=== PATIENT | female | born 1935 ===

== ENCOUNTER 2017-04-22 02:47 | Inpatient (IN) | payer MEDICARE, MEDICAID ==
--- NOTE | 2017-04-22 03:17 | C.PDOC ---
History Of Present Illness Patient is an 81 y/o female who presents to the ED with complaints of fever, chills, generalized weakness, and body aches. Patient notes dizziness, but admits to chronic vertigo at baseline. Patient reports to have fell and almost hit her head, but kept herself up from falling completely. Denies any LOC and admits to remembering the entire event. No other physical complaints at this time. Time Seen by Provider: 04/22/17 03:15 Chief Complaint (Nursing): Dizziness/Lightheaded History Per: Patient History/Exam Limitations: no limitations Severity: Mild Pain Scale Rating Of: 3 Reports Recently: Treated By A Physician Recent travel outside of the [place]: No Past Medical History Reviewed: Historical Data, Nursing Documentation, Vital Signs Vital Signs: Last Vital Signs Temp 99 F 04/22/17 05:35 Pulse 60 04/22/17 05:35 Resp 20 04/22/17 05:35 BP 127/55 L 04/22/17 05:35 Pulse Ox 94 L 04/22/17 06:07 - Medical History PMH: Arthritis, Depression, HTN, Hypercholesterolemia Denies: Diabetes, Hepatitis, HIV, Chronic Kidney Disease, Seizures, Sexually Transmitted Disease Surgical History: Cholecystectomy Denies: Pacemaker - [facility] CORONAR ARTERIOGR-2 CATH (08/24/11) INDIVID PSYCHOTHERAP NEC (09/17/12) LEFT HEART CARDIAC CATH (08/24/11) LT HEART ANGIOCARDIOGRAM (08/24/11) OTHER GROUP THERAPY (09/17/12) PHYSICAL THERAPY NEC (07/02/13) Family History: States: No Known Family Hx - Social History Hx Tobacco Use: No Hx Alcohol Use: No Hx Substance Use: No - Immunization History Hx Tetanus Toxoid Vaccination: Yes Hx Influenza Vaccination: Yes Hx Pneumococcal Vaccination: Yes Review Of Systems Constitutional: Positive for: Fever, Chills, Weakness (generalized), Malaise Neurological: Positive for: Dizziness (secondary to chronic vertigo), Other ( negative LOC) Physical Exam - Physical Exam Appears: Well, Non-toxic, No Acute Distress Skin: Warm, Dry Head: Normacephalic, Tenderness (small area of tenderness on left temportal/ parietal area) Eye(s): bilateral: Normal Inspection Oral Mucosa: Moist Chest: Symmetrical Cardiovascular: Rhythm Regular, No Murmur Respiratory: Normal Breath Sounds, No Rales, No Rhonchi, No Wheezing Gastrointestinal/Abdominal: Soft, No Tenderness Neurological/Psych: Oriented x3, Normal Speech, Normal Cognition ED Course And Treatment - Laboratory Results Result Diagrams: 04/22/17 03:29 18 03:29 ECG: Interpreted By Me, Viewed By Me ECG Rhythm: Sinus Rhythm (81), Nonspecific Changes O2 Sat by Pulse Oximetry: 94 Pulse Ox Interpretation: Normal - Radiology CXR: Interpreted by Me, Viewed By Me CXR Interpretation: No: Infiltrates, Fracture, Pnemothorax Progress Note: Blood work, Head CT, CXR, and UA ordered. Tylenol, Tamiflu, and IV fluids administered. Disposition Discussed With .: Charles Clements Comment: accepted the pt on his service and took over the care at 6:10 AM Doctor Will See Patient In The: Hospital Counseled Patient/Family Regarding: Studies Performed, Diagnosis - Disposition Disposition: HOSPITALIZED Disposition Time: 06:11 Condition: FAIR Forms: [facility] (Salvadorean) - POA Present On Arrival: Poor Glycemic Control - Clinical Impression Clinical Impression: Dizziness, Near syncope, Fever - Scribe Statement The provider has reviewed the documentation as recorded by the Scribe Rica Gupta All medical record entries made by the Scribe were at my direction and personally dictated by me. I have reviewed the chart and agree that the record accurately reflects my personal performance of the history, physical exam, medical decision making, and the department course for this patient. I have also personally directed, reviewed, and agree with the discharge instructions and disposition. Decision To Admit - Pt Status Changed To: Hospital Disposition Of: Inpatient - Admit Certification Admit to Inpatient:: After my assessment, the patient will require hospitalization for at least two midnights. This is because of the severity of symptoms shown, intensity of services needed, and/or the medical risk in this patient being treated as an outpatient. - InPatient: Physician Admission Certification: I certify that this patient requires 2 or more midnights of care for the following reason:: After my assessment, the patient will require hospitalization for at least two midnights. This is because of the severity of symptoms shown, intensity of services needed, and/or the medical risk in this patient being treated as an outpatient. - . Bed Request Type: Telemetry Admitting Physician: Charles Clements Patient Diagnosis: Dizziness, Near syncope, Fever
[2017-04-22 03:34] LABS: BASO % 0.3 % (0.0-2.0); EOS # 0.1 K/uL (0.0-0.7); EOS % 1.2 % (0.0-4.0); HEMOGLOBIN 12.6 g/dL (11.0-16.0); LYMPH # 0.4 K/uL (1.0-4.3); LYMPH % 5.6 % (20.0-40.0); MEAN CELL VOLUME 85.2 fL (81.0-99.0); MEAN PLATELET VOLUME 8.1 fL (7.2-11.7); MONO # 0.3 K/uL (0.0-0.8); MONO % 4.7 % (0.0-10.0); NEUT % 88.2 % (50.0-75.0); PLATELET COUNT 212 K/uL (130-400); RBC 4.34 Mil/uL (3.80-5.20); RED CELL DISTRIBUTION WIDTH 13.8 % (11.5-14.5); WHITE BLOOD COUNT 6.8 K/uL (4.8-10.8)
[2017-04-22 03:42] LABS: INR 1.1; PROTHROMBIN TIME 11.8 SECONDS (9.7-12.2)
[2017-04-22 03:44] LABS: ALB/GLOB RATIO 1.3 (1.0-2.1); ALT/SGPT 53 U/L (9-52); AST/SGOT 45 U/L (14-36); BLOOD UREA NITROGEN 12 mg/dL (7-17); CALCIUM 9.4 mg/dl (8.6-10.4); GFR AFRICAN-AMERICAN > 60; GFR NON-AFRICAN AMERICAN > 60; MAGNESIUM 1.9 mg/dL (1.6-2.3)
[2017-04-22] MEDS ORDERED: Sodium Chloride 0.9% 1,000 ML ONE (03:52)
[2017-04-22] MEDS: Sodium Chloride 0.9% 1,000 ML IV SCH ×2 (03:57→18:03)
[2017-04-22 04:07] LABS: VENOUS BLOOD GAS BASE EXCESS -1.6 mmol/L (0.0-2.0); VENOUS BLOOD GAS PCO2 31 mmHg (40-60); VENOUS BLOOD GAS PO2 40 mm/Hg (30-55); VENOUS BLOOD PH 7.45 (7.32-7.43)
[2017-04-22 04:14] LABS: URINE BACTERIA RARE (<OCC); URINE BILIRUBIN NEGATIVE (NEGATIVE); URINE BLOOD NEGATIVE (NEGATIVE); URINE CLARITY Clear (Clear); URINE COLOR Straw (YELLOW); URINE GLUCOSE (UA) NORMAL (Normal); URINE LEUKOCYTE ESTERASE NEG Leu/uL (Negative); URINE NITRATE NEGATIVE (NEGATIVE); URINE PROTEIN NEGATIVE (NEGATIVE); URINE UROBILINOGEN NORMAL mg/dL (0.2-1.0)
[2017-04-22 04:17] LABS: EOSINOPHIL 2 % (0-4); LYMPHOCYTE 3 % (20-40); MONOCYTE 3 % (0-10); NEUTROPHIL 92 % (50-75); PLATELET ESTIMATE NORMAL (NORMAL); TOTAL CELLS COUNTED 100
--- NOTE | 2017-04-22 05:23 | CT ---
EXAM: CT Head Without Intravenous Contrast EXAM DATE/TIME: 04/22/2017 3:22 AM CLINICAL HISTORY: 81 years old, female; Pain; Headache; Patient HX: 11-3-17 images sent; Additional info: R/O bleed TECHNIQUE: Axial computed tomography images of the head/brain without intravenous contrast. All CT scans at this facility use one or more dose reduction techniques, viz.: automated exposure control; ma/kV adjustment per patient size (including targeted exams where dose is matched to indication; i.e. head); or iterative reconstruction technique. COMPARISON: No relevant prior studies available. FINDINGS: BRAIN: Areas of low density in the periventricular white matter bilaterally, most likely representing mild chronic small vessel ischemic changes. No significant acute abnormality identified. No acute hemorrhage seen within the brain. No acute extra-axial fluid collections visualized. No evidence of significant mass effect within the brain. VENTRICLES: No evidence of significant hydrocephalus. BONES/JOINTS: No acute fractures or other acute bony abnormality noted. SOFT TISSUES: Tiny, round calcifications in the deep right facial soft tissues, which appear associated with a small 1.5 cm low density, lobulated soft tissue mass with well-defined margins. Findings are suspicious for a venous malformation, with the calcifications representing phleboliths. SINUSES: Visualized paranasal sinuses appear clear. MASTOID AIR CELLS: Mastoid air cells appear clear. IMPRESSION: - No acute findings seen within the brain. 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 This finding could be further evaluated with nonemergent MRI of the face/neck. - See above for remaining findings.
[2017-04-22] MEDS ORDERED: Azithromycin 500mg/250ML NS 500 MG/250 ML BAG IVPB SCH (06:15)
--- NOTE | 2017-04-22 09:32 | RAD ---
Chest x-ray single frontal view History: Shortness of breath. Comparison: 12/30/2011 Findings: Mild to moderate venous congestion. Patchy increased markings at the left lung base. Tortuous ectatic aorta. Right hilar prominence. Calcification at the aortic knob. Mild cardiomegaly. Degenerative changes in the spine and shoulders. Surgical clips in the right upper abdomen. Impression: Mild to moderate venous congestion. Patchy increased markings at the left lung base. Tortuous ectatic aorta. Right hilar prominence. Calcification at the aortic knob. Mild cardiomegaly.
[2017-04-22] MEDS ORDERED: Azithromycin 500 MG in Sodium Chloride 0.9% 250 ML IVPB SCH (14:15)
[2017-04-22] MEDS ORDERED: Azithromycin 500 MG in Sodium Chloride 0.9% 250 ML IVPB ONE (14:15)
[2017-04-22] MEDS ORDERED: Potassium Chloride 20 mEq ER Tab PO ONE (20:30)
[2017-04-23] MEDS ORDERED: Potassium Chloride 20 mEq ER Tab PO ONE (10:00)
[2017-04-23] MEDS: Azithromycin 500 MG in Sodium Chloride 0.9% 250 ML IVPB SCH (10:01)
--- NOTE | 2017-04-23 14:24 | CP.PCM.CON ---
History of Present Illness - History of Present Illness History of Present Illness: Patient is an 81 y/o female who presents to the ED with complaints of fever, chills, generalized weakness, and body aches. Patient notes dizziness, but admits to chronic vertigo at baseline. Patient reports to have fell and almost hit her head, but kept herself up from falling completely. Denies any LOC and admits to remembering the entire event. No other physical complaints at this time. admitted with severe flu like symptoms tested neg for Influenza IV rx for URI in progress - Medical History PMH: Arthritis, Depression, HTN, Hypercholesterolemia Denies: Diabetes, Hepatitis, HIV, Chronic Kidney Disease, Seizures, Sexually Transmitted Disease Review of Systems - Review of Systems All systems: reviewed and no additional remarkable complaints except - Constitutional Constitutional: As Per HPI - EENT Eyes: absent: As Per HPI, Blind Spots, Blurred Vision, Change in Vision, Decreased Night Vision, Diplopia, Discharge, Dry Eye, Exophthalmos, Floaters, Irritation, Itchy Eyes, Loss of Peripheral Vision, Pain, Photophobia, Requires Corrective Lenses, Sees Flashes, Spots in Vision, Tunnel Vision, Other Visual Disturbances, Loss of Vision, Other Ears: absent: As Per HPI, Decreased Hearing, Ear Discharge, Ear Pain, Tinnitus, Abnormal Hearing, Disequilibrium, Dizziness, Other Nose/Mouth/Throat: absent: As Per HPI, Epistaxis, Nasal Congestion, Nasal Discharge, Nasal Obstruction, Nasal Trauma, Nose Pain, Post Nasal Drip, Sinus Pain, Sinus Pressure, Bleeding Gums, Change in Voice, Dental Pain, Dry Mouth, Dysphagia, Halitosis, Hoarsness, Lip Swelling, Mouth Lesions, Mouth Pain, Odynophagia, Sore Throat, Throat Swelling, Tongue Swelling, Facial Pain, Neck Pain, Neck Mass, Other - Breasts Breasts: absent: As Per HPI, Change in Shape, Mass, Pain, Nipple Discharge, Nipple Inversion, Skin Changes, Swelling, Other - Cardiovascular Cardiovascular: As Per HPI - Respiratory Respiratory: As Per HPI, Cough - Gastrointestinal Gastrointestinal: absent: As Per HPI, Abdominal Pain, Belching, Bloating, Change in Bowel Habits, Change in Stool Character, Coffee Ground Emesis, Constipation, Cramping, Diarrhea, Dyspepsia, Dysphagia, Early Satiety, Excessive Flatus, Fecal Incontinence, Heartburn, Hematemesis, Hematochezia, Loose Stools, Melena, Nausea, Odynophagia, Temesmus, Vomiting, Other - Genitourinary Genitourinary: absent: As Per HPI, Change in Urinary Stream, Difficulty Urinating, Dysuria, Flank Pain, Hematuria, Pyuria, Nocturia, Urinary Incontinence, Urinary Frequency, Urinary Hesitance, Urinary Urgency, Voiding Freq/Small Amts, Freq UTI, Hx Renal/Bladder Calculi, Hx /Renal Surgery, Bladder Distension, Other - Reproductive: Female Reproductive:Female: absent: As Per HPI, Amenorrhea, Amenorrhea/ Control, Currently Menstual, Cycle <21 Days, Cycle >35 Days, Cycle Variable, Menses 1-7 Days, Menses >/= 8 Days, Menses Variable, Cycle > 4 Weeks Between, No Menses for 6 Months, Heavy Menses, Light Menses, Normal Menses, Spotting Between Cycles , S/P Hysterectomy, Menopausal, Post Menopausal, Premenarche, Abnormal Vaginal Bleeding, Dysmenorrhea, Dyspareunia, Genital Lesions, Genital Pruritis, Pelvic Pain, Prolapse Symptoms, Sexual Dysfunction, Vaginal Discharge, Vaginal Dryness , Vaginal Odor, Vaginal Pruritis, Other - Menstruation Menstruation: absent: As Per HPI, Amenorrhea, Amenorrhea/ Control, Currently Menstual, Cycle <21 Days, Cycle >35 Days, Cycle Variable, Menses 1-7 Days, Menses >/= 8 Days, Menses Variable, Cycle > 4 Weeks Between, No Menses for 6 Months, Heavy Menses, Light Menses, Normal Menses, Spotting Between Cycles , S/P Hysterectomy, Menopausal, Post Menopausal, Premenarche, Abnormal Vaginal Bleeding, Dysmenorrhea, Other - Musculoskeletal Musculoskeletal: As Per HPI - Integumentary Integumentary: absent: As Per HPI, Acne, Alopecia, Bleeding Lesions, Change in Hair, Change in Nails, Change in Pigmentation, Changing Lesions, Dry Skin, Erythema, Furuncle, Hirsutism, Lesions, New Lesions, Non-Healing Lesions, Photosensitivity, Pruritus, Rash, Skin Pain, Skin Ulcer, Sores, Striae, Swelling , Unusual Bruising, Wounds, Jaundice, Other - Neurological Neurological: As Per HPI - Psychiatric Psychiatric: absent: As Per HPI, Abnormal Sleep Pattern, Anhedonia, Anxiety, Auditory Hallucinations, Behavioral Changes, Change in Appetite, Change in Libido, Confusion, Depression, Difficulty Concentrating, Hallucinations, Homicidal Ideation, Hopelessness, Irritability, Memory Loss, Mood Swings, Panic Attacks, Paranoia, Suicidal Ideation, Visual Hallucinations, Tactile Hallucinations, Other - Endocrine Endocrine: absent: As Per HPI, Change in Body Appearance, Change in Libido, Cold Intolorance, Deepening of Voice, Excessive Sweating, Fatigue, Flushing, Heat Intolorance, Increase in Ring/Shoe/Hat Size, Palpitations, Polydipsia, Polyphagia, Polyuria, Other - Hematologic/Lymphatic Hematologic: absent: As Per HPI, Easy Bleeding, Easy Bruising, Lymphadenopathy, Other Past Patient History - Infectious Disease Hx of Infectious Diseases: None - Past Medical History & Family History Past Medical History?: Yes - Past Social History Smoking Status: Never Smoked - CARDIAC Hx Cardiac Disorders: Yes Hx Hypercholesterolemia: Yes Hx Hypertension: Yes Hx Pacemaker: No - PULMONARY Hx Respiratory Disorders: No Hx Tuberculosis: No - NEUROLOGICAL Hx Neurological Disorder: No Hx Seizures: No - HEENT Hx HEENT Problems: No - RENAL Hx Chronic Kidney Disease: No - ENDOCRINE/METABOLIC Hx Endocrine Disorders: No - HEMATOLOGICAL/ONCOLOGICAL Hx Blood Disorders: No Hx Human Immunodeficiency Virus (HIV): No - INTEGUMENTARY Hx Dermatological Problems: No - MUSCULOSKELETAL/RHEUMATOLOGICAL Hx Musculoskeletal Disorders: Yes Hx Arthritis: Yes Hx Falls: Yes - GASTROINTESTINAL Hx Gastrointestinal Disorders: Yes Hx Gastroesophageal Reflux: Yes - GENITOURINARY/GYNECOLOGICAL Hx Genitourinary Disorders: No Hx Sexually Transmitted Disorders: No - PSYCHIATRIC Hx Psychophysiologic Disorder: Yes Hx Depression: Yes Hx Substance Use: No - SURGICAL HISTORY Hx Surgeries: Yes Hx Cholecystectomy: Yes Hx Orthopedic Surgery: Yes (left TKR) - ANESTHESIA Hx Anesthesia: Yes Hx Anesthesia Reactions: No Hx Malignant Hyperthermia: No Meds Allergies/Adverse Reactions: Allergies Allergy/AdvReac Type Severity Reaction Status Date / Time Sulfa (Sulfonamide Allergy RASH Verified 04/22/17 03:10 Antibiotics) - Medications Medications: Current Medications Sodium Chloride (Sodium Chloride 0.9%) 1,000 mls @ 100 mls/hr IV .Q10H [facility] Last Admin: 04/22/17 18:03 Dose: 100 mls/hr Azithromycin 500 mg/ Sodium (Chloride) 250 mls @ 250 mls/hr IVPB DAILY [facility] Last Admin: 04/23/17 10:01 Dose: 250 mls/hr Oseltamivir Phosphate (Tamiflu Cap) 75 mg PO BID [facility] Stop: 04/27/17 19:20 Last Admin: 04/23/17 10:00 Dose: 75 mg Physical Exam - Constitutional Appears: Non-toxic, Cachectic, Chronically Ill - Head Exam Head Exam: NORMOCEPHALIC - Eye Exam Eye Exam: PERRL. absent: Scleral icterus - ENT Exam ENT Exam: Mucous Membranes Dry, Normal External Ear Exam - Neck Exam Neck exam: Negative for: Lymphadenopathy - Respiratory Exam Respiratory Exam: Decreased Breath Sounds, Clear to Auscultation Bilateral - Cardiovascular Exam Cardiovascular Exam: REGULAR RHYTHM, +S1, +S2 - GI/Abdominal Exam GI & Abdominal Exam: Diminished Bowel Sounds, Soft. absent: Rebound, Rigid, Tenderness - Rectal Exam Rectal Exam: Deferred - Exam Exam: NORMAL INSPECTION - Extremities Exam Extremities exam: Positive for: pedal pulses present. Negative for: calf tenderness, pedal edema, tenderness - Back Exam Back exam: absent: CVA tenderness (L), CVA tenderness (R) - Neurological Exam Neurological exam: Alert, CN II-XII Intact, Oriented x3, Reflexes Normal - Psychiatric Exam Psychiatric exam: Depressed - Skin Skin Exam: Dry, Intact Results - Vital Signs Recent Vital Signs: Last Vital Signs Temp 98.2 F 04/22/17 23:10 Pulse 58 L 04/22/17 23:10 Resp 20 04/22/17 23:10 BP 123/58 L 04/22/17 23:10 Pulse Ox 94 L 04/22/17 23:10 - Labs Result Diagrams: 04/22/17 03:29 04/22/17 03:29 Assessment & Plan (1) Dizziness Status: Acute (2) Fever Status: Acute (3) Near syncope Status: Acute - Assessment and Plan (Free Text) Assessment: flu like symptoms deconditioning dehydration s/p fall URI cont rx HI eval
[2017-04-23] MEDS: Sodium Chloride 0.9% 1,000 ML IV SCH ×2 (18:26→19:30)
--- NOTE | 2017-04-24 09:38 | CP.PCM.PN ---
Subjective - Date & Time of Evaluation Date of Evaluation: 04/24/17 Time of Evaluation: 07:50 - Subjective Subjective: PGY2 Medicine Note - Dr. Clements Patient is an 81 y/o female who presents to the ED with complaints of fever, chills, generalized weakness, and body aches. Patient notes dizziness, but admits to chronic vertigo at baseline. Patient reports to have fell and almost hit her head, but kept herself up from falling completely. Denies any LOC and admits to remembering the entire event. No other physical complaints at this time. Patient seen and examined this am. Reports continued body aches and chills. Tolerating diet and having normal BM's. Denies any SOB, chest pain, n/v, d/c, or any additional acute complaints. PMD: Dr. Komal Hurtado @ [facility] PMHx: osteoarthritis, HTN, hypelipidemia, gerd and depression/dysthymic Allergy: sulfa Home Medication: see EMR FHx: unknown to pt Surgical hx: left knee replacement, cholecystectomy Social History: Tobacco: Alcohol and Illicit Drugs: Denies Living Arrangements: With family Objective - Vital Signs/Intake and Output Vital Signs (last 24 hours): Temp Pulse Resp BP Pulse Ox 97.9 F 54 L 20 149/72 96 04/24/17 08:30 04/24/17 08:30 04/24/17 08:30 04/24/17 08:30 04/24/17 08:30 Intake and Output: 04/24/17 04/24/17 06:59 18:59 Intake Total 1100 Balance 1100 - Medications Medications: Current Medications Acetaminophen (Tylenol 325mg Tab) 650 mg PO Q6H PRN PRN Reason: Headache Sodium Chloride (Sodium Chloride 0.9%) 1,000 mls @ 100 mls/hr IV .Q10H [facility] Last Admin: 04/23/17 19:30 Dose: Not Given Azithromycin 500 mg/ Sodium (Chloride) 250 mls @ 250 mls/hr IVPB DAILY [facility] Last Admin: 04/23/17 10:01 Dose: 250 mls/hr Oseltamivir Phosphate (Tamiflu Cap) 75 mg PO BID [facility] Stop: 04/27/17 19:20 Last Admin: 04/23/17 18:25 Dose: 75 mg - Labs Labs: 04/22/17 03:29 04/22/17 03:29 PT 11.8 SECONDS (9.7-12.2) 04/22/17 03:29 INR 1.1 04/22/17 03:29 APTT 32 SECONDS (21-34) 04/22/17 03:29 - Additional Findings Additional findings: - Constitutional Appears: Non-toxic, Cachectic, Chronically Ill - Head Exam Head Exam: NORMOCEPHALIC - Eye Exam Eye Exam: PERRL. absent: Scleral icterus - ENT Exam ENT Exam: Mucous Membranes Dry, Normal External Ear Exam - Neck Exam Neck exam: Negative for: Lymphadenopathy - Respiratory Exam Respiratory Exam: Decreased Breath Sounds, Clear to Auscultation Bilateral - Cardiovascular Exam Cardiovascular Exam: REGULAR RHYTHM, +S1, +S2 - GI/Abdominal Exam GI & Abdominal Exam: Diminished Bowel Sounds, Soft. absent: Rebound, Rigid, Tenderness - Extremities Exam Extremities exam: Positive for: pedal pulses present. Negative for: calf tenderness, pedal edema, tenderness - Back Exam Back exam: absent: CVA tenderness (L), CVA tenderness (R) - Neurological Exam Neurological exam: Alert, CN II-XII Intact, Oriented x3, Reflexes Normal - Psychiatric Exam Psychiatric exam: Depressed - Skin Skin Exam: Dry, Intact Assessment and Plan - Assessment and Plan (Free Text) Assessment: URI 04/24: afebrile. Continue current tx. admitted with fever of 101F flu like symptoms Tylenol 325mg Tab) 650 mg PO Q6H PRN Tamiflu Cap) 75 mg PO BID [facility]UI Azithromycin 500 IVPB DAILY Dizziness / Near syncope - acute, on admission. dehydration s/p fall cont rx HI eval HTN Valsartan 80mg PO qD Depression Depakote Sprinkles 125mg PO qD Duloxetine 60mg PO qD HLD Crestor 10mg PO qD ASA 81mg Prophylaxis NS 100cc/hr Protonix 20mg PO qD Singulair 10mg PO qD SCDs Disposition: Script left in chart for [facility] 25hrs/week 2/2 hx of Depression , lethargy, osteoarthritis, near syncope. All management as per Dr. Clements
[2017-04-24] MEDS: Azithromycin 500 MG in Sodium Chloride 0.9% 250 ML IVPB SCH (10:45)
--- NOTE | 2017-04-24 11:54 | CP.PCM.PN ---
Subjective - Date & Time of Evaluation Date of Evaluation: 04/24/17 Time of Evaluation: 08:00 - Subjective Subjective: C./O BODY ACHES NO FEVER Objective - Vital Signs/Intake and Output Vital Signs (last 24 hours): Temp Pulse Resp BP Pulse Ox 97.9 F 54 L 20 149/72 96 04/24/17 08:30 04/24/17 08:30 04/24/17 08:30 04/24/17 08:30 04/24/17 08:30 Intake and Output: 04/24/17 04/24/17 06:59 18:59 Intake Total 1100 Balance 1100 - Medications Medications: Current Medications Acetaminophen (Tylenol 325mg Tab) 650 mg PO Q6H PRN PRN Reason: Headache Sodium Chloride (Sodium Chloride 0.9%) 1,000 mls @ 100 mls/hr IV .Q10H [facility] Last Admin: 04/23/17 19:30 Dose: Not Given Azithromycin 500 mg/ Sodium (Chloride) 250 mls @ 250 mls/hr IVPB DAILY [facility] Last Admin: 04/24/17 10:45 Dose: 250 mls/hr Oseltamivir Phosphate (Tamiflu Cap) 75 mg PO BID [facility] Stop: 04/27/17 19:20 Last Admin: 04/24/17 10:45 Dose: 75 mg - Labs Labs: 04/22/17 03:29 04/22/17 03:29 PT 11.8 SECONDS (9.7-12.2) 04/22/17 03:29 INR 1.1 04/22/17 03:29 APTT 32 SECONDS (21-34) 04/22/17 03:29 - Constitutional Appears: Non-toxic, Chronically Ill - Head Exam Head Exam: NORMOCEPHALIC - Eye Exam Eye Exam: PERRL - ENT Exam ENT Exam: Mucous Membranes Dry - Neck Exam Neck Exam: absent: Lymphadenopathy - Respiratory Exam Respiratory Exam: Decreased Breath Sounds - Cardiovascular Exam Cardiovascular Exam: REGULAR RHYTHM - GI/Abdominal Exam GI & Abdominal Exam: Distended - Rectal Exam Rectal Exam: Deferred - Exam Exam: NORMAL INSPECTION - Extremities Exam Extremities Exam: absent: Pedal Edema - Back Exam Back Exam: absent: CVA tenderness (L), CVA tenderness (R) - Neurological Exam Neurological Exam: Alert, Awake, Oriented x3 - Psychiatric Exam Psychiatric exam: Depressed - Skin Skin Exam: Dry Assessment and Plan (1) Dizziness Status: Acute (2) Fever Status: Acute (3) Near syncope Status: Acute - Assessment and Plan (Free Text) Assessment: CONT RX AWAIT CULTURES
[2017-04-24] MEDS ORDERED: Albuterol-Ipratrop 3 mg / 0.5 (3 ml) UD INH PRN (14:18)
[2017-04-24] MEDS: Pantoprazole 20 mg EC Tab PO SCH (15:06)
[2017-04-24] MEDS: Sodium Chloride 0.9% 1,000 ML IV SCH (19:15)
--- NOTE | 2017-04-25 06:53 | PN ---
DATE: The patient is feeling from the flu, supportive care. Continue treatment. Charles Clements MD
[2017-04-25] MEDS: Azithromycin 500 MG in Sodium Chloride 0.9% 250 ML IVPB SCH (09:39)
[2017-04-25] MEDS ORDERED: Divalproex 125 mg Sprinkle Capsule PO SCH (10:00)
[2017-04-25] MEDS: Pantoprazole 20 mg EC Tab PO SCH (10:48)
--- NOTE | 2017-04-25 11:38 | CP.PCM.PN ---
Subjective - Date & Time of Evaluation Date of Evaluation: 04/25/17 Time of Evaluation: 07:45 - Subjective Subjective: PGY2 Medicine Note - Dr. Clements Patient seen and examined this am. Patient reports feeling better, however with continued body aches. She is tolerating her diet and having normal BM's. Denies any SOB, chest pain, n/v, d/c, or any additional acute complaints. She is looking forward to going home. --- Patient is stable for discharge per Dr. Clements. Patient should resume all medications as outlined in this document. Additionally, patient should take the new medications listed below (scripts provided). Please make an appointment and follow up with your Primary Doctor within one week of discharge. Patient should return to ED immediately if symptoms return or worsen. Instructions discussed with patient who understood and agreed. Newly prescribed medications: Tamiflu 75mg PO BID #5 - take through 04/27/17 [facility] - 2 tabs on Day 1, then 1 tab on Days 2-5 Objective - Vital Signs/Intake and Output Vital Signs (last 24 hours): Temp Pulse Resp BP Pulse Ox 98.3 F 59 L 18 145/74 98 04/25/17 08:31 04/25/17 08:31 04/25/17 08:31 04/25/17 08:31 04/25/17 08:31 Intake and Output: 04/25/17 04/25/17 06:59 18:59 Intake Total 1050 Balance 1050 - Medications Medications: Current Medications Acetaminophen (Tylenol 325mg Tab) 650 mg PO Q6H PRN PRN Reason: Headache Albuterol/Ipratropium (Duoneb 3 Mg/0.5 Mg (3 Ml) Ud) 3 ml INH RQ6 PRN PRN Reason: Shortness of Breath Aspirin (Ecotrin) 81 mg PO DAILY [facility] Last Admin: 04/25/17 09:44 Dose: Not Given Divalproex Sodium (Depakote Sprinkles) 125 mg PO DAILY [facility] Last Admin: 04/25/17 09:40 Dose: 125 mg Duloxetine HCl (Cymbalta) 60 mg PO DAILY [facility] Last Admin: 04/25/17 09:40 Dose: 60 mg Azithromycin 500 mg/ Sodium (Chloride) 250 mls @ 250 mls/hr IVPB DAILY [facility] Last Admin: 04/25/17 09:39 Dose: 250 mls/hr Losartan Potassium (Cozaar) 50 mg PO DAILY [facility] Last Admin: 04/25/17 09:39 Dose: 50 mg Montelukast Sodium (Singulair) 10 mg PO DAILY [facility] Last Admin: 04/25/17 09:39 Dose: 10 mg Oseltamivir Phosphate (Tamiflu Cap) 75 mg PO BID [facility] Stop: 04/27/17 19:20 Last Admin: 04/25/17 09:40 Dose: 75 mg Pantoprazole Sodium (Protonix Ec Tab) 20 mg PO DAILY [facility] Last Admin: 04/25/17 10:48 Dose: 20 mg - Labs Labs: 04/22/17 03:29 04/22/17 03:29 PT 11.8 SECONDS (9.7-12.2) 04/22/17 03:29 INR 1.1 04/22/17 03:29 APTT 32 SECONDS (21-34) 04/22/17 03:29 - Additional Findings Additional findings: - Constitutional Appears: Non-toxic, Cachectic, Chronically Ill - Head Exam Head Exam: NORMOCEPHALIC - Eye Exam Eye Exam: PERRL. absent: Scleral icterus - ENT Exam ENT Exam: Mucous Membranes Moist, Normal External Ear Exam - Neck Exam Neck exam: Negative for: Lymphadenopathy - Respiratory Exam Respiratory Exam: Clear to Auscultation Bilateral; absent: Wheezes, Rales - Cardiovascular Exam Cardiovascular Exam: REGULAR RHYTHM, +S1, +S2 - GI/Abdominal Exam GI & Abdominal Exam: Normal Bowel Sounds, Soft. absent: Rebound, Rigid, Tenderness - Extremities Exam Extremities exam: Positive for: pedal pulses present. Negative for: calf tenderness, pedal edema, tenderness - Back Exam Back exam: absent: CVA tenderness (L), CVA tenderness (R) - Neurological Exam Neurological exam: Alert, CN II-XII Intact, Oriented x3, Reflexes Normal - Psychiatric Exam Psychiatric exam: Depressed (improving) - Skin Skin Exam: Dry, Intact Assessment and Plan - Assessment and Plan (Free Text) Assessment: URI 04/24-04/25: afebrile. Continue current tx. admitted with fever of 101F flu like symptoms Tylenol 325mg Tab) 650 mg PO Q6H PRN Tamiflu Cap) 75 mg PO BID [facility] Azithromycin 500 IVPB DAILY Dizziness / Near syncope - acute, on admission. dehydration s/p fall cont rx HI eval HTN Valsartan 80mg PO qD Depression Depakote Sprinkles 125mg PO qD Duloxetine 60mg PO qD HLD Crestor 10mg PO qD ASA 81mg Electrolyte Imbalance Hypokalemia, K 3.0 - KCl 40 Prophylaxis NS 100cc/hr Protonix 20mg PO qD Singulair 10mg PO qD SCDs Disposition: Script left in chart for [facility] 25hrs/week 2/2 hx of Depression , lethargy, osteoarthritis, near syncope. All management as per Dr. Clements
[2017-04-25 11:47] LABS: BASO % 0.3 % (0.0-2.0); EOS # 0.2 K/uL (0.0-0.7); EOS % 4.8 % (0.0-4.0); HEMOGLOBIN 12.2 g/dL (11.0-16.0); LYMPH # 1.4 K/uL (1.0-4.3); LYMPH % 30.7 % (20.0-40.0); MEAN CELL VOLUME 86.4 fL (81.0-99.0); MEAN CORPUSCULAR HEMOGLOBIN 29.8 pg (27.0-31.0); MEAN CORPUSCULAR HGB CONC 34.5 g/dL (33.0-37.0); MEAN PLATELET VOLUME 8.5 fL (7.2-11.7); MONO # 0.3 K/uL (0.0-0.8); MONO % 6.2 % (0.0-10.0); NEUT # 2.7 K/uL (1.8-7.0); NRBC % 0.1 % (0.0-2.0); RBC 4.1 Mil/uL (3.80-5.20); RED CELL DISTRIBUTION WIDTH 13.7 % (11.5-14.5); WHITE BLOOD COUNT 4.7 K/uL (4.8-10.8)
[2017-04-25 11:58] LABS: ALB/GLOB RATIO 1.2 (1.0-2.1); ALBUMIN 3.5 g/dL (3.5-5.0); ALT/SGPT 40 U/L (9-52); AST/SGOT 38 U/L (14-36); BLOOD UREA NITROGEN 9 mg/dL (7-17); GFR AFRICAN-AMERICAN > 60; GFR NON-AFRICAN AMERICAN > 60; MAGNESIUM 1.7 mg/dL (1.6-2.3)
[2017-04-25] MEDS ORDERED: Potassium Chloride 20 mEq/15 ml LIQ UD PO ONE (13:03)
[2017-04-25 15:57] VITALS: BP 132/65; PULSE 65; RESP 20; TEMP 97.8; O2SAT 96
== END 2017-04-25 15:58 | disposition home or self-care (01) | DRG 641 ==
LOC: C.ER 02:47 → C.9E 06:08 → C.6T 16:53
PROVIDERS: ADMIT Internal Medicine Pulmonary Disease; ATTEND Internal Medicine Pulmonary Disease
DX: E86.0 Dehydration (principal); E78.00 Pure hypercholesterolemia, unspecified; E87.6 Hypokalemia; F32.9 Major depressive disorder, single episode, unspecified; I10 Essential (primary) hypertension; J06.9 Acute upper respiratory infection, unspecified; K21.9 Gastro-esophageal reflux disease without esophagitis; Z79.82 Long term (current) use of aspirin